=== PATIENT | male | born 2000 | race Caucasian/White ===

== ENCOUNTER 2022-10-28 11:13 | Emergency (ER) | payer OTHER, MEDICAID ==
[~2022-10-28] VITALS: Ht 170.2 cm; Wt 57.0 kg
[2022-10-28 11:21] VITALS: BP 118/69
== END 2022-10-28 15:38 | disposition left against medical advice (07) ==
LOC: ER 11:13
DX: Z53.21 Procedure and treatment not carried out due to patient leaving prior to being seen by health care provider (principal)
CPT/HCPCS: 99281

== ENCOUNTER 2025-05-24 13:16 | Emergency (ER) | payer MEDICAID, OTHER ==
[~2025-05-24] VITALS: Ht 170.2 cm; Wt 77.0 kg
[2025-05-24 13:31] VITALS: O2SAT 97
[2025-05-24 14:17] LABS: CLARITY URINE CLEAR (CLEAR); COLOR URINE YELLOW (YELLOW); GLUCOSE URINE NEGATIVE (NEGATIVE); KETONES URINE NEGATIVE (NEGATIVE); LEUKOCYTE ESTERASE URINE NEGATIVE (NEGATIVE); NITRITE URINE NEGATIVE (NEGATIVE); OCCULT BLOOD URINE NEGATIVE (NEGATIVE); PH URINE 6.0 (4.5-8.0); PROTEIN URINE NEGATIVE (NEGATIVE); SPECIFIC GRAVITY URINE 1.026 (1.005-1.030); UROBILINOGEN URINE 1.0 E.U./dL (0.2-1.0)
[2025-05-24] MEDS ORDERED: CEPH500C2 MT (15:12)
[2025-05-24 15:19] VITALS: BP 136/86; PULSE 80; RESP 16; TEMP 36.8; O2SAT 99
== END 2025-05-24 15:20 | disposition home or self-care (01) ==
LOC: ER 13:16
DX: L73.9 Follicular disorder, unspecified (principal)
CPT/HCPCS: 81003; 99283